=== PATIENT | male | born 1975 | race Caucasian/White ===

== ENCOUNTER 2022-12-09 18:59 | Inpatient (IN) | payer SELFPAY ==
[2022-12-09] MEDS ORDERED: Diazepam 10 MG/2 ML SYRINGE ONE (20:06)
[2022-12-09] MEDS ORDERED: Morphine 4 MG/ML VIAL ONE (20:27)
[2022-12-09] MEDS ORDERED: HYDROmorphone 0.5 MG/0.5 ML SYRINGE ONE (21:10)
[2022-12-09] MEDS ORDERED: Ketamine In 0.9 % NaCl 50 MG/5 ML SYRINGE ONE (21:53)
[2022-12-09] MEDS ORDERED: Ondansetron PF 4 MG/2 ML Vial ONE (22:12)
[2022-12-09] MEDS ORDERED: Rocuronium Bromide 10 MG/ML (10ML VIAL) ONE ×2 (22:25→22:33)
[2022-12-09] MEDS ORDERED: Propofol 1,000 MG/100 ML VIAL IV ONE ×2 (22:27→23:12)
[2022-12-09] MEDS ORDERED: fentaNYL 50 mcg/mL 1 mL Vial ONE ×3 (22:50→23:44)
[2022-12-09 22:56] LABS: #Lymphocytes 0.8 thou/uL (1.20-3.40); #Monocytes 0.1 thou/uL (0.11-0.59); #Neutrophils 10.5 thou/uL (1.40-6.50); %Basophils 0.2 % (0.0-1.0); %Eosinophils 0.2 % (0.0-10.0); %Lymphocytes 6.7 % (21.0-51.0); %Monocytes 0.5 % (0.0-10.0); %Neutrophils 92.4 % (42.0-75.0); Hemoglobin 17.8 g/dL (14.0-18.0); Mean Corpuscular HGB CONC 32.4 g/dL (32.0-36.0); Mean Corpuscular Hemoglobin 30.7 pg (27.0-31.0); Mean Corpuscular Volume 94.7 fl (78.0-98.0); Mean Platelet Volume 8.4 fL (7.4-10.4); Platelet Count 190 10x3/uL (130-400); RBC Distribution Width 13.7 % (11.5-14.5); Red Blood Cell (RBC) Count 5.78 mill/uL (4.70-6.10); White Blood Cell (WBC) Count 11.4 10x3/uL (4.8-10.8)
[2022-12-09 23:17] LABS: ALT (SGPT) 62 U/L (8-55); AST (SGOT) 36 U/L (5-34); Albumin 4.6 g/dL (3.5-5.0); Alkaline Phosphatase 88 U/L (40-110); Anion Gap 15 mmol/L (10-20); BUN (Urea Nitrogen) 10 mg/dL (8.9-20.6); Bilirubin, Total 0.6 mg/dL (0.2-1.2); Calc. Creatinine Clearance 0 mL/min (70-130); Calcium 9.2 mg/dL (7.8-10.44); Carbon Dioxide 23 mmol/L (22-29); Chloride 103 mmol/L (98-107); Estimated GFR 94; Globulin 3.2 g/dL (2.4-3.5); Glucose 146 mg/dL (70-105); Potassium 4.4 mmol/L (3.5-5.1); Protein, Total 7.8 g/dL (6.0-8.3); Sodium 137 mmol/L (136-145)
[2022-12-09] MEDS ORDERED: LORazepam 2 MG/ML SYR.(CARPUJECT) ONE ×2 (23:44→23:55)
[2022-12-09] MEDS ORDERED: Fentanyl CADD 100 ML IV SCH (23:45)
[2022-12-10 00:28] LABS: Bilirubin Negative (Negative); Blood, Urine Negative (Negative); Clarity Clear (Clear); Glucose, Urine (Dipstick) Normal (Negative); Ketone, Urine 60 mg/dL (Negative); Leukocyte Negative Leu/uL (Negative); Nitrite Negative (Negative); Protein, Urine (Dipstick) 10 mg/dL (Neg-Trace); Specific Gravity, Urine 1.023 (1.002-1.036); Urobilinogen Normal mg/dL (Less than 2)
[2022-12-10 00:36] LABS: Amphetamine Not Detected (NotDetected); Barbiturates Screen Not Detected (NotDetected); Benzodiazepine Screen Detected (NotDetected); Cocaine Metabolite Screen Not Detected (NotDetected); Methadone Not Detected (NotDetected); Methamphetamine Not Detected (NotDetected); Opiate Screen Detected (NotDetected); Oxycodone Screen Not Detected (NotDetected); Phencyclidine (PCP) Not Detected (NotDetected); THC/Cannabinoid Screen Detected (NotDetected); Tricyclic Screen Not Detected (NotDetected)
[2022-12-10] MEDS ORDERED: LORazepam 2 MG/ML SYR.(CARPUJECT) ONE (02:09)
[2022-12-10 02:26] LABS: Actual Bicarbonate (HCO3a) 21.4 mEq/L (22-28); Analyzer IN Cardio ER; Base Excess (BEa) -3.9 mEq/L (-2.0 to +3.0); CO2 Tension 40.1 mmHg (35.0-45.0); Calcium, Ionized (arterial) 1.13 mmol/L (1.12-1.30); Carboxyhemoglobin (COHb) 0.2 gm% (0.0-3.0); Hemoglobin (Hb) 16.1 g/dL (14.0-18.0); O2 Tension (PaO2), arterial 195.2 mmHg (80.0-100.0); Potassium - ABG Lab 4.42 mmol/L (3.70-5.30); pH, Arterial 7.346 (7.35-7.45)
[2022-12-10 02:30] LABS: Puncture Site LBA
[2022-12-10 02:31] LABS: ALV-art Gradient 111.175 mmHg (0-20)
[2022-12-10] MEDS ORDERED: Propofol 1,000 MG/100 ML VIAL IV ONE (02:32)
[2022-12-10] MEDS ORDERED: Lorazepam 20 MG/10ML 100 MG in Sodium Chloride 0.9% 50 ML IVPB SCH (03:00)
[2022-12-10] MEDS ORDERED: Acetaminophen 650 MG Suppository PR PRN (03:24)
[2022-12-10] MEDS ORDERED: Ondansetron PF 4 MG/2 ML Vial IVP PRN (03:24)
[2022-12-10] MEDS ORDERED: Acetaminophen 325 MG TAB PO PRN (03:24)
[2022-12-10] MEDS ORDERED: Ondansetron ODT 4 MG TAB PO PRN (03:24)
[2022-12-10] MEDS ORDERED: Propofol BOLUS 1,000 MG/100 ML VIAL IV PRN (04:00)
[2022-12-10] MEDS ORDERED: Fentanyl BOLUS 250 ML IVPB PRN (04:00)
[2022-12-10] MEDS ORDERED: Lorazepam 2 MG/ML VIAL SLOW IVP PRN (04:00)
[2022-12-10] MEDS ORDERED: Fentanyl CADD 100 ML IV SCH (04:00)
[2022-12-10] MEDS ORDERED: Propofol 1,000 MG/100 ML VIAL IV PRN (04:00)
[2022-12-10] MEDS ORDERED: DISCONTINUE PREVIOUS NARCOTIC PAIN MEDICATIONS AND BENZODIAZEPINES FS SCH (04:00)
[2022-12-10] MEDS ORDERED: Morphine 2 MG/ML VIAL SLOW IVP PRN (04:00)
[2022-12-10] MEDS ORDERED: Ventilator Sedation Protocol 1 EACH FS ONE (04:01)
[2022-12-10] MEDS ORDERED: Fentanyl CADD 100 ML ONE (04:09)
[2022-12-10] MEDS ORDERED: Electrolyte Replacement Protocol 1 EACH FS SCH (04:15)
[2022-12-10] MEDS: Lactated Ringer's 1,000 ML IV SCH ×2 (04:17→11:50)
[2022-12-10 04:41] VITALS: BMI 37.1
[2022-12-10 05:29] LABS: Actual Bicarbonate (HCO3v) 23 mEq/L (22-28); Calcium, Ionized (venous) 1.05 mmol/L (1.16-1.32); Chloride (VBG) 104 mmol/L (98-106); Hemoglobin (Hb) 16.7 g/dL (13.1-17.2); Potassium (VBG) 4.08 mmol/L (3.70-5.30); Sodium 138.4 mmol/L (133-146); pH (venous) 7.37 (7.32-7.43)
[2022-12-10 05:50] LABS: #Lymphocytes 1.5 thou/uL (1.20-3.40); #Monocytes 0.9 thou/uL (0.11-0.59); #Neutrophils 13.1 thou/uL (1.40-6.50); %Basophils 0.1 % (0.0-1.0); %Eosinophils 0.1 % (0.0-10.0); %Lymphocytes 9.5 % (21.0-51.0); %Neutrophils 84.3 % (42.0-75.0); Hemoglobin 15.9 g/dL (14.0-18.0); Mean Corpuscular HGB CONC 32.2 g/dL (32.0-36.0); Mean Corpuscular Hemoglobin 30.7 pg (27.0-31.0); Mean Corpuscular Volume 95.1 fl (78.0-98.0); Mean Platelet Volume 8.4 fL (7.4-10.4); Platelet Count 158 10x3/uL (130-400); RBC Distribution Width 13.7 % (11.5-14.5); Red Blood Cell (RBC) Count 5.17 mill/uL (4.70-6.10); White Blood Cell (WBC) Count 15.5 10x3/uL (4.8-10.8)
[2022-12-10 06:08] LABS: Anion Gap 14 mmol/L (10-20); BUN (Urea Nitrogen) 10 mg/dL (8.9-20.6); Calc. Creatinine Clearance 171 mL/min (70-130); Calcium 8.4 mg/dL (7.8-10.44); Carbon Dioxide 21 mmol/L (22-29); Chloride 107 mmol/L (98-107); Estimated GFR 106; Glucose 117 mg/dL (70-105); Sodium 138 mmol/L (136-145)
[2022-12-10] MEDS ORDERED: DC Sedation Protocol FS ONE (07:37)
[2022-12-10 07:55] VITALS: TEMP 98.6
[2022-12-10] MEDS ORDERED: Famotidine/PF 20 mg/2ml Vial SLOW IVP SCH (09:00)
[2022-12-10] MEDS ORDERED: Ibuprofen 800 MG TAB PO PRN (14:54)
[2022-12-10] MEDS ORDERED: Cyclobenzaprine 10 MG TAB PO SCH (15:00)
== END 2022-12-10 16:35 | disposition home or self-care (01) | DRG 552 ==
LOC: ERS 18:59 → CCU 12-10 02:23
PROVIDERS: ADMIT Student in an Organized Health Care Education/Training Program; ATTEND Family Medicine
PROC: 5A1935Z Respiratory Ventilation, Less than 24 Consecutive Hours (ICD-10-PCS; principal; 2022-12-10)
PROC: 0BH17EZ Insertion of Endotracheal Airway into Trachea, Via Natural or Artificial Opening (ICD-10-PCS; 2022-12-10)
PROC: 0D9770Z Drainage of Stomach, Pylorus with Drainage Device, Via Natural or Artificial Opening (ICD-10-PCS; 2022-12-10)
DX: M48.061 Spinal stenosis, lumbar region without neurogenic claudication (principal); D72.829 Elevated white blood cell count, unspecified
CPT/HCPCS: 36415; 36600; 71045; 72148; 80048; 80306; 81003; 82805; 85025; 93005; 94002; J1170; J1650; J2060; J2270; J2405; J2704; J3010; J3360; J3490; J7120; S0028